=== PATIENT | female | born 1995 | race Caucasian/White ===

== ENCOUNTER → 2016-09-18 | Outpatient (CLI) | payer OTHER ==
--- NOTE | 2016-09-18 17:27 | ST Modified Barium Swallow ---
Recommendation - Recommendations Recommendations: 1) Continue current diet. 2) In agreement with continued GI follow-up due to no pharyngeal deficits observed. SUMMARY: No penetration or aspiration observed during the study. No oral or pharyngeal residuals seen. Pt continually reported throughout study sensation of food sticking in neck. No radiographic findings of pharyngeal residuals observed. RA panned down during study to view esophageal phase-RA reported WNL. Recommend continued GI as no pharyngeal deficits observed. Medical Diagnoses - Medical Diagnoses Medical Diagnosis Description & ICD-10 Code(s): oropharyngeal "transfer" dysphagia Other Medical Diagnoses/Co-Morbidities: gastroparesis, GERD, chronic constipation, depression, anxiety, history or stomach and intestinal ulcers per pt. - ICD-10 Tx Diagnosis Coding (1) Dysphagia, unspecified ICD-10 Code(s): R13.10 - DYSPHAGIA, UNSPECIFIED ST Modified Barium Swallow - General Date: 09/18/16 Referring Physician: Dr Ruiz Risks/Precautions: None Date of Onset: 09/19/15 Reason for Referral: oropharyngeal "transfer" dysphagia - History History obtained from: Patient -: Medical - Pt reports pain in chest, "hard to swallow and talk", and "food moving slowly" through chest. Pt states onset of symptoms approximately 1 year ago, however pain in chest has recently become worse. Pt states foods "get stuck " in her neck and liquids cause her to occasionally cough. Pt reports choking however states has not happened "recently". Reports most recent PNA and bronchitis in 2012. Pt currently following GI. PMHx: gastroparesis, GERD, chronic constipation, depression, anxiety, stomach and intestinal ulcers. Medications: prozac, topamax, nexium, vitamin B, vitamin D, doxycycline, amitiza , maxalt, trazadone, melatonin, magnezium oxid, glucosamine. Allergies: apples, pollen. - Functional Status Prior Functional Status: INDEPENDENT: feeding Current Functional Limitations: feeding - Subjective Patient/caregiver goal(s): safe swallow Cognitive-Linguistic Function: WNL Speech Intelligibility: WNL Current Nutritional Means: PO Current PO diet: Regular Current symptoms: c/o Globus sensation Pain: 2/5 - stomach pain - Objective Assessment: Upright, Left Lateral - Food Trials Used Food trials used: Thin liquids, Pureed, Regular The patient: Was Able to Self Feed - Oral-Motor Skills Dentition: Full Velo-pharyngeal function: Unremarkable Laryngeal Function: Volitional Cough, Volitional Swallow - Assessment Oral prep: Normal Labial closure: Adequate Leakage: None Mastication: Adequate Lingual Movement: Normal Oral stage: Normal for this Procedure - Pharyngeal Stage Initiation of Pharyngeal Stage Reflex: Normal Decreased laryngeal elevation: No Reduced Velopharyngeal Closure: no Reduced pressure generation: No reduced tongue-based retraction: No Pre-swallow pooling in valleculae: None Pre-Swallow pooling in pyriforms: None Reduced Thyro-Hyoid approximation: No Reduced epiglottic excursion: No Reduced pharyngeal peristalsis/contraction: No Post-swallow residulas vallecular: None Post-Swallow residuals in pyriforms: None - Fall Risk Assessment Medications/Conditions that increase fall risks include: Antidepressants, sedatives, anti-arrhythmic, diuretic, benzodiazipenes, neuroleptics. BP regulation problems, cardiac problems, balance or gait deficits, neurological problems. Is patient considered at risk for falls: no Fall Risk Actions Taken: No action needed - Behavioral Observations During evaluation process patient: was pleasant, was cooperative, able to answer questions, provided medical history - Treatment / Educational Needs: Treatment/Education Needs: Treatment consisted of patient education on the role of the Speech Pathologist. Patient's plan of care and golas were communicated as well as scheduling and attendance policies. Recommendations for initial home program were shared. Patient demonstrated understanding and verbalized agreement. - Impression/Summary Laryngeal Penetration: No Tracheal Aspiration: no Patient presents with: Normal swallow at eval - safe and effective swallow observed during study - Recommendations NPO: no Solid diet recommendations: Regular Liquid Diet Modification: Thin Strict aspiration precautions: No Pt/Family education and followup with MD: Yes Dysphagia therapy with VP SOFTWARE SUPPORT: no Recommended techniques: Fully Upright During Meal Information, Precautions and Recommendations: Patient (Verbal) - Time Total Time: 25 - Plan of Care Strategies to optimize patient understanding include:: ongoing assessment of educational needs, implementation of educational strategies, and re-education. - - -: Thank you for the opportunity to work with this patient and his/her family. Should you have any questions about this patient's plan or progress, I can be reached at [phone]. Charge G Code? - - -: No
== END ==
LOC: RAD 07:58
PROVIDERS: ATTEND Internal Medicine Gastroenterology
DX: R13.12 Dysphagia, oropharyngeal phase (principal)
CPT/HCPCS: 74230